=== PATIENT | male | born 1970 | race Caucasian/White ===

== ENCOUNTER 2023-03-14 20:51 | Inpatient (IN) | payer MEDICAID ==
[~2023-03-14] VITALS: Ht 185.4 cm; Wt 91.9 kg
[2023-03-14] MEDS ORDERED: MAGNESIUM SULFATE 2 GM, MVI, ADULT NO.1 WITH VIT K 10 ML, THIAMINE 100 MG, FOLIC ACID 1... IV ONE ×5 (23:15)
[2023-03-14] MEDS ORDERED: LORazepam 2 MG/ML VIAL IVP ONE (23:15)
[2023-03-14 23:33] LABS: BASOPHILS % (AUTO) 0.8 % (0.0-2.0); EOSINOPHILS % (AUTO) 1.2 % (1.0-6.0); HEMATOCRIT 36.9 % (41-53); HEMOGLOBIN 12.8 g/dL (13.5-17.5); LYMPHOCYTES # (AUTO) 1.2 K/uL (1.0-4.8); LYMPHOCYTES % (AUTO) 19.7 % (22.0-44.0); MEAN CORPUSCULAR HEMOGLOBIN 34.9 pg (26.0-34.0); MEAN CORPUSCULAR HGB CONC 34.7 G/dL (31.0-37.0); MEAN CORPUSCULAR VOLUME 101 fL (80-100); MONOCYTES # (AUTO) 0.7 K/uL (0.1-1.0); MONOCYTES % (AUTO) 12.1 % (2.0-9.0); NEUTROPHILS % (AUTO) 66.2 % (40.0-70.0); PLATELET COUNT (AUTO) 88 K/uL (150-450); RED BLOOD CELL COUNT(AUTO) 3.67 MIL/uL (4.50-5.90); RED CELL DISTRIBUTION WIDTH 13.2 % (11.5-14.5); WHITE BLOOD COUNT (AUTO) 6.1 K/uL (4.5-11.0)
[2023-03-14 23:36] LABS: APPEARANCE,URINE CLEAR (CLEAR); BILIRUBIN,URINE NEGATIVE (NEGATIVE); COLOR,URINE LIGHT YELLOW (YELLOW); GLUCOSE, URINE (UA) NEGATIVE (NEGATIVE); KETONES,URINE TRACE mg/dL (NEGATIVE); LEUKOCYTE ESTERASE ,URINE NEGATIVE (NEGATIVE); NITRATE,URINE NEGATIVE (NEGATIVE); OCCULT BLOOD,URINE NEGATIVE (NEGATIVE); PROTEIN,URINE NEGATIVE (NEGATIVE); SPECIFIC GRAVITIY, URINE 1.007 (1.003-1.030); UROBILINOGEN,URINE <=1.0 mg/dL (<=1.0)
[2023-03-14 23:42] LABS: ALCOHOL, BLOOD (SERUM) 143 mg/dL (0-10); ANION GAP 16 mmol/L (8-16); CALCIUM, TOTAL 8.9 mg/dL (8.8-10.5); CARBON DIOXIDE 26 mmol/L (22-29); CHLORIDE 102 mmol/L (98-107); CREATININE 0.77 mg/dL (0.60-1.30); GLOMERULAR FILTR. RATE CALC > 60 mL/min (>60); GLUCOSE,RANDOM 79 mg/dL (70-110); POTASSIUM 3.4 mmol/L (3.5-5.1); SODIUM SERUM 143 mmol/L (136-145); UREA NITROGEN, BLOOD 7 mg/dL (7-18)
[2023-03-14 23:43] LABS: ALCOHOL, URINE DRUG SCREEN POSITIVE (NEGATIVE); AMPHET/METH SCREEN,URINE NEGATIVE (NEGATIVE); BARBITURATE SCREEN, URINE NEGATIVE (NEGATIVE); BENZODIAZEPINES SCREEN,URINE NEGATIVE (NEGATIVE); CANNABINOID SCREEN,URINE NEGATIVE (NEGATIVE); COCAINE SCREEN,URINE NEGATIVE (NEGATIVE); METHADONE SCREEN, URINE NEGATIVE (NEGATIVE); OPIATE SCREEN,URINE NEGATIVE (NEGATIVE); PHENCYCLIDINE SCREEN,URINE NEGATIVE (NEGATIVE)
[2023-03-15] VITALS (7 sets, daily range): BP systolic 130–165; BP diastolic 66–96; PULSE 86–123; RESP 18–20; TEMP 98–98.5; O2SAT 98
[2023-03-15 00:02] LABS: ALANINE AMINOTRANSFERASE 47 U/L (12-78); ALKALINE PHOSPHATASE 62 U/L (46-116); ASPARTATE AMINOTRANSFERASE 83 U/L (15-37); BILIRUBIN,TOTAL 0.8 mg/dL (0.1-1.0); TOTAL PROTEIN, SERUM 7.3 g/dL (6.4-8.2)
[2023-03-15 00:03] LABS: CREATINE KINASE, TOTAL ONLY 1120 U/L (39-308); TROPONIN I-HIGH SENSITIVITY 12 ng/L (<76)
[2023-03-15 00:08] LABS: B-TYPE NATRIURETIC PEPTIDE 10 pg/mL (0-100)
[2023-03-15] MEDS ORDERED: 0.9% SODIUM CHLORIDE 10 ML SYRINGE IVP PRN ×2 (00:45)
[2023-03-15] MEDS ORDERED: ACETAMINOPHEN 325 MG TABLET PO PRN ×2 (00:45)
[2023-03-15] MEDS ORDERED: ONDANSETRON HCL 4 MG/2 ML VIAL IVP PRN ×2 (00:45)
[2023-03-15 01:05] LABS: COVID AG,FIA SOURCE NASAL SWAB
[2023-03-15 01:21] LABS: SARS-COV2 (COVID) ANTIGEN,FIA Negative (Negative)
[2023-03-15] MEDS ORDERED: LORazepam 2 MG TABLET PO PRN (02:15)
[2023-03-15] MEDS ORDERED: 1: MAGNESIUM SULFATE 2 GM, MVI, ADULT NO.1 WITH VIT K 10 ML, THIAMINE 100 MG, FOLIC ACID IV SCH ×10 (02:30→23:00)
[2023-03-15] MEDS ORDERED: SODIUM CHLORIDE 0.9% 1,000 ML IV ONE (06:30)
[2023-03-15] MEDS: HEPARIN SODIUM,PORCINE 5,000 UNITS/ML VIAL SQ SCH ×2 (08:19→15:29)
[2023-03-15] MEDS: METOPROLOL TARTRATE 25 MG TABLET PO SCH ×2 (08:19→20:25)
[2023-03-15] MEDS: MULTIVITAMINS WITH MINERALS, THERAPEUTIC TABLET PO SCH ×2 (08:43→20:25)
[2023-03-15] MEDS ORDERED: FUROSEMIDE 20 MG/2 ML VIAL IVP SCH ×2 (09:00)
[2023-03-15] MEDS ORDERED: MAGNESIUM SULFATE 2 GM, MVI, ADULT NO.1 WITH VIT K 10 ML, THIAMINE 100 MG, FOLIC ACID 1... IV ONE ×5 (14:00)
[2023-03-15] MEDS: ChlordiazePOXIDE HCL 25 MG CAPSULE PO PRN ×2 (15:24→20:25)
[2023-03-16 00:18] VITALS: BP 129/75; PULSE 101; RESP 19; TEMP 98.4
[2023-03-16 04:49] VITALS: BP 129/71; PULSE 84; RESP 17; TEMP 98.5
[2023-03-16] MEDS ORDERED: LORazepam 2 MG TABLET PO PRN (07:00)
[2023-03-16] MEDS ORDERED: ChlordiazePOXIDE HCL 25 MG CAPSULE PO PRN (07:00)
[2023-03-16 07:30] LABS: BASOPHILS % (AUTO) 1.1 % (0.0-2.0); EOSINOPHILS % (AUTO) 3.5 % (1.0-6.0); HEMATOCRIT 38.1 % (41-53); HEMOGLOBIN 13.2 g/dL (13.5-17.5); LYMPHOCYTES # (AUTO) 0.7 K/uL (1.0-4.8); LYMPHOCYTES % (AUTO) 19.1 % (22.0-44.0); MEAN CORPUSCULAR HEMOGLOBIN 35.1 pg (26.0-34.0); MEAN CORPUSCULAR HGB CONC 34.7 G/dL (31.0-37.0); MEAN CORPUSCULAR VOLUME 101 fL (80-100); MONOCYTES # (AUTO) 0.6 K/uL (0.1-1.0); MONOCYTES % (AUTO) 15.7 % (2.0-9.0); NEUTROPHILS # (AUTO) 2.3 K/uL (1.8-7.7); NEUTROPHILS % (AUTO) 60.6 % (40.0-70.0); PLATELET COUNT (AUTO) 79 K/uL (150-450); RED BLOOD CELL COUNT(AUTO) 3.76 MIL/uL (4.50-5.90); RED CELL DISTRIBUTION WIDTH 13.4 % (11.5-14.5); WHITE BLOOD COUNT (AUTO) 3.7 K/uL (4.5-11.0)
[2023-03-16 07:48] LABS: ANION GAP 7 mmol/L (8-16); CARBON DIOXIDE 28 mmol/L (22-29); CHLORIDE 104 mmol/L (98-107); CREATININE 0.69 mg/dL (0.60-1.30); GLOMERULAR FILTR. RATE CALC > 60 mL/min (>60); GLUCOSE,RANDOM 86 mg/dL (70-110); SODIUM SERUM 139 mmol/L (136-145); UREA NITROGEN, BLOOD 6 mg/dL (7-18)
[2023-03-16] MEDS: HEPARIN SODIUM,PORCINE 5,000 UNITS/ML VIAL SQ SCH ×4 (08:00→23:32)
[2023-03-16 08:13] VITALS: BP 130/68; PULSE 80; RESP 18; TEMP 98.3
[2023-03-16 08:21] LABS: CREATINE KINASE, TOTAL ONLY 531 U/L (39-308)
[2023-03-16] MEDS ORDERED: LORazepam 2 MG TABLET PO SCH (09:00)
[2023-03-16] MEDS: METOPROLOL TARTRATE 25 MG TABLET PO SCH ×2 (09:02→20:39)
[2023-03-16] MEDS: ChlordiazePOXIDE HCL 25 MG CAPSULE PO SCH ×4 (09:02→20:39)
[2023-03-16] MEDS: MULTIVITAMINS WITH MINERALS, THERAPEUTIC TABLET PO SCH ×2 (09:02→20:39)
[2023-03-16] MEDS: LORazepam 2 MG/ML VIAL IVP PRN ×3 (09:05→17:24)
[2023-03-16 09:49] LABS: RBC MORPHOLOGY COMMENT ABNORMAL RBC MORPH
[2023-03-16 10:50] VITALS: BP 140/77; PULSE 81; RESP 18; TEMP 98.3
[2023-03-16] MEDS: FOLIC ACID 1 MG TABLET PO SCH (13:23)
[2023-03-16] MEDS: THIAMINE 100 MG TABLET PO SCH (13:23)
[2023-03-16] MEDS: MORPHINE SULFATE 2 MG/ML SYRINGE IVP PRN (13:24)
[2023-03-16 20:10] VITALS: BP 138/93; PULSE 91; RESP 19; TEMP 98.7
[2023-03-17 00:08] VITALS: BP 130/74; PULSE 87; RESP 16; TEMP 98.6
[2023-03-17 05:32] VITALS: BP 145/89; PULSE 82; RESP 18; TEMP 98.6
[2023-03-17 07:45] VITALS: BP 118/68; PULSE 73; RESP 20; TEMP 98
[2023-03-17] MEDS: HEPARIN SODIUM,PORCINE 5,000 UNITS/ML VIAL SQ SCH ×3 (08:00→23:19)
[2023-03-17] MEDS: MORPHINE SULFATE 2 MG/ML SYRINGE IVP PRN (08:51)
[2023-03-17] MEDS: FOLIC ACID 1 MG TABLET PO SCH (08:52)
[2023-03-17] MEDS: MULTIVITAMINS WITH MINERALS, THERAPEUTIC TABLET PO SCH ×2 (08:52→20:02)
[2023-03-17] MEDS: METOPROLOL TARTRATE 25 MG TABLET PO SCH ×2 (08:52→20:01)
[2023-03-17] MEDS: THIAMINE 100 MG TABLET PO SCH (08:52)
[2023-03-17] MEDS: ChlordiazePOXIDE HCL 25 MG CAPSULE PO SCH ×4 (08:52→20:07)
[2023-03-17 11:37] VITALS: BP 143/69; PULSE 79; RESP 19; TEMP 98.4
[2023-03-17 14:43] VITALS: BP 132/71; PULSE 72; RESP 20; TEMP 98
[2023-03-17 20:12] VITALS: BP 123/75; PULSE 72; RESP 18; TEMP 99
[2023-03-18 00:40] VITALS: BP 127/73; PULSE 87; RESP 18; TEMP 98.5
[2023-03-18 04:58] VITALS: BP 133/75; PULSE 83; RESP 18; TEMP 98
[2023-03-18] MEDS ORDERED: ChlordiazePOXIDE HCL 10 MG CAPSULE PO PRN (07:00)
[2023-03-18] MEDS ORDERED: LORazepam 1 MG TABLET PO PRN (07:00)
[2023-03-18 08:11] VITALS: BP 117/73; PULSE 83; RESP 19; TEMP 98.2
[2023-03-18] MEDS ORDERED: LORazepam 1 MG TABLET PO SCH (09:00)
[2023-03-18] MEDS: METOPROLOL TARTRATE 25 MG TABLET PO SCH ×2 (09:20→20:05)
[2023-03-18] MEDS: THIAMINE 100 MG TABLET PO SCH (09:20)
[2023-03-18] MEDS: FOLIC ACID 1 MG TABLET PO SCH (09:20)
[2023-03-18] MEDS: ACETAMINOPHEN 325 MG TABLET PO PRN ×2 (09:21→20:08)
[2023-03-18] MEDS: ChlordiazePOXIDE HCL 10 MG CAPSULE PO SCH ×4 (09:21→20:05)
[2023-03-18] MEDS: HEPARIN SODIUM,PORCINE 5,000 UNITS/ML VIAL SQ SCH ×2 (09:21→15:08)
[2023-03-18] MEDS: MULTIVITAMINS WITH MINERALS, THERAPEUTIC TABLET PO SCH ×2 (09:21→20:05)
[2023-03-18 11:08] VITALS: BP 130/87; PULSE 91; RESP 19; TEMP 97.9
[2023-03-18 16:25] VITALS: BP 123/90; PULSE 81; RESP 19; TEMP 98.4
[2023-03-18 20:14] VITALS: BP 124/76; PULSE 74; RESP 20; TEMP 98.3
[2023-03-19] MEDS: HEPARIN SODIUM,PORCINE 5,000 UNITS/ML VIAL SQ SCH ×4 (00:17→23:29)
[2023-03-19 04:00] VITALS: BP 129/74; PULSE 68; RESP 18; TEMP 97.5
[2023-03-19] MEDS ORDERED: ChlordiazePOXIDE HCL 10 MG CAPSULE PO PRN (07:00)
[2023-03-19] MEDS ORDERED: LORazepam 1 MG TABLET PO PRN (07:00)
[2023-03-19] MEDS: MULTIVITAMINS WITH MINERALS, THERAPEUTIC TABLET PO SCH ×2 (07:55→19:41)
[2023-03-19] MEDS: FOLIC ACID 1 MG TABLET PO SCH (07:57)
[2023-03-19] MEDS: THIAMINE 100 MG TABLET PO SCH (07:57)
[2023-03-19] MEDS: METOPROLOL TARTRATE 25 MG TABLET PO SCH ×2 (07:58→19:41)
[2023-03-19 08:13] VITALS: BP 127/86; PULSE 87; RESP 18; TEMP 97.7
[2023-03-19] MEDS: MORPHINE SULFATE 2 MG/ML SYRINGE IVP PRN (08:18)
[2023-03-19 15:16] VITALS: BP 124/75; PULSE 92; RESP 20; TEMP 98.5
[2023-03-19 19:36] VITALS: BP 120/73; PULSE 87; RESP 18; TEMP 98.5
[2023-03-19] MEDS: ACETAMINOPHEN 325 MG TABLET PO PRN (19:42)
[2023-03-20 03:58] VITALS: BP 125/71; PULSE 80; RESP 18; TEMP 98.6
[2023-03-20] MEDS: FOLIC ACID 1 MG TABLET PO SCH (08:10)
[2023-03-20] MEDS: HEPARIN SODIUM,PORCINE 5,000 UNITS/ML VIAL SQ SCH ×3 (08:10→23:14)
[2023-03-20] MEDS: MULTIVITAMINS WITH MINERALS, THERAPEUTIC TABLET PO SCH ×2 (08:10→20:11)
[2023-03-20] MEDS: THIAMINE 100 MG TABLET PO SCH (08:10)
[2023-03-20] MEDS: METOPROLOL TARTRATE 25 MG TABLET PO SCH ×2 (08:10→20:11)
[2023-03-20 08:20] VITALS: BP 125/86; PULSE 80; RESP 19; TEMP 97.9
[2023-03-20] MEDS ORDERED: DICLOFENAC SODIUM 1% 100 GM GEL [4GM] TP PRN (12:45)
[2023-03-20 19:57] VITALS: BP 105/67; PULSE 90; RESP 20; TEMP 98.3
[2023-03-20] MEDS: ACETAMINOPHEN 325 MG TABLET PO PRN (20:11)
[2023-03-21 04:22] VITALS: BP 110/69; PULSE 71; RESP 20; TEMP 97.7
[2023-03-21 07:57] VITALS: BP 123/85; PULSE 84; RESP 19; TEMP 97.7
[2023-03-21] MEDS: FOLIC ACID 1 MG TABLET PO SCH (09:32)
[2023-03-21] MEDS: THIAMINE 100 MG TABLET PO SCH (09:32)
[2023-03-21] MEDS: MULTIVITAMINS WITH MINERALS, THERAPEUTIC TABLET PO SCH (09:32)
[2023-03-21] MEDS: METOPROLOL TARTRATE 25 MG TABLET PO SCH (09:32)
[2023-03-21] MEDS: HEPARIN SODIUM,PORCINE 5,000 UNITS/ML VIAL SQ SCH (09:32)
[2023-03-21 16:03] VITALS: BP 118/72; PULSE 74; RESP 19; TEMP 97.9
== END 2023-03-21 17:00 | disposition home or self-care (01) | DRG 280 ==
LOC: EMS 20:56 → 5S 03-15 01:19 → 6S 03-18 10:43
PROVIDERS: ADMIT Internal Medicine; ATTEND Internal Medicine
DX: K70.10 Alcoholic hepatitis without ascites (principal); D61.818 Other pancytopenia; M62.82 Rhabdomyolysis; F10.239 Alcohol dependence with withdrawal, unspecified; E87.6 Hypokalemia; M19.90 Unspecified osteoarthritis, unspecified site; K74.60 Unspecified cirrhosis of liver; E83.42 Hypomagnesemia; I10 Essential (primary) hypertension; G89.29 Other chronic pain; Z20.822 Contact with and (suspected) exposure to COVID-19; F41.9 Anxiety disorder, unspecified; F17.200 Nicotine dependence, unspecified, uncomplicated; Z59.00 Homelessness unspecified; R60.1 Generalized edema
CPT/HCPCS: 71045; 80048; 80053; 80307; 81003; 82550; 83735; 83880; 84484; 85025; 93005; 97110; 97116; 97163; 97535; 99291; G0378; G0480; J1644; J1940; J2060; J2270; J2405; J3411; J3475; J3490; J7030; 36415-L1; 36415-TC